=== PATIENT | male | born 1935 | race Caucasian/White ===

== ENCOUNTER → 2016-10-01 | Outpatient (CLI) | payer MEDICARE ==
[~2016-10-01] MED LIST: AMITIZA24 MCG PO; CELEBREX200 MG PO; COZAAR25 MG PO; COZAAR50 MG PO; CYMBALTA60 MG PO; FLOMAX 0.4 MG0.4 MG PO; KLOR-CON M2020 MEQ PO; LASIX40 MG PO; LEVAQUIN500 MG PO; NEURONTIN 300300 MG PO; NEURONTIN 400400 MG PO; OXYBUTYNIN CHLO10 MG PO; OXYCODONE HCL30 MG PO; PILOCARPINE HCL5 MG PO; PROTONIX40 MG PO; SOTALOL80 MG PO; VITAMIN D5000 UNIT PO
== END ==
LOC: HEART 5 11:00
DX: I50.32 Chronic diastolic (congestive) heart failure (principal); R00.1 Bradycardia, unspecified; I47.1 Supraventricular tachycardia; R00.2 Palpitations
CPT/HCPCS: 93306

== ENCOUNTER 2016-10-02 10:11 | Observation (INO) | payer MEDICARE ==
[~2016-10-02] VITALS: Ht 182.9 cm; Wt 110.7 kg
[~2016-10-02 10:11] MED LIST changes: -COZAAR25 MG PO; -LEVAQUIN500 MG PO; -NEURONTIN 400400 MG PO
[2016-10-02 10:43] LABS: HEMOGLOBIN 14.7 gm/dl (14.0-17.5); RED BLOOD COUNT 4.78 M/UL (4.20-5.50); WHITE BLOOD COUNT 5.4 K/UL (4.5-11.0)
[2016-10-02 11:04] LABS: BUN/CREATININE RATIO 17 (0-10)
[2016-10-02] MEDS ORDERED: NEURONTIN 400400 MG PO (19:11)
[2016-10-03] MEDS ORDERED: LEVAQUIN500 MG PO (13:15)
[2016-10-03] MEDS ORDERED: COZAAR25 MG PO (13:18)
== END 2016-10-03 15:00 | disposition home or self-care (01) ==
LOC: ER1 10:11 → ZEROF 17:21 → M/S 17:42
PROVIDERS: Emergency Medicine; ADMIT Internal Medicine Cardiovascular Disease
PROC: 0JH606Z Insertion of Pacemaker, Dual Chamber into Chest Subcutaneous Tissue and Fascia, Open Approach (ICD-10-PCS; principal; 2016-10-02)
PROC: 02H63JZ Insertion of Pacemaker Lead into Right Atrium, Percutaneous Approach (ICD-10-PCS; 2016-10-02)
PROC: 02HK3JZ Insertion of Pacemaker Lead into Right Ventricle, Percutaneous Approach (ICD-10-PCS; 2016-10-02)
DX: I49.5 Sick sinus syndrome (principal); I45.5 Other specified heart block; I11.0 Hypertensive heart disease with heart failure; I50.32 Chronic diastolic (congestive) heart failure; I47.1 Supraventricular tachycardia; E78.5 Hyperlipidemia, unspecified; Z98.890 Other specified postprocedural states; Z79.891 Long term (current) use of opiate analgesic; Z79.899 Other long term (current) drug therapy; Z88.6 Allergy status to analgesic agent; G47.33 Obstructive sleep apnea (adult) (pediatric); Z87.891 Personal history of nicotine dependence; E66.9 Obesity, unspecified; Z68.33 Body mass index [BMI] 33.0-33.9, adult
CPT/HCPCS: 33208; 36415; 71010; 80053; 82550; 82553; 83874; 84443; 84484; 85025; 85610; 93005; 96365; 96366; 96375; 99152; 99153; 99285; C1785; C1898; G0378; J0360; J0690; J1644; J2250; J2270; J3010; J3370; J7030; J7040; J7050; Q9965

== ENCOUNTER 2020-04-09 12:23 | Inpatient (IN) | payer MEDICARE ==
[~2020-04-09] VITALS: Ht 182.9 cm; Wt 97.5 kg
[~2020-04-09 12:23] MED LIST changes: +AMOXICILLIN500 MG PO; +ATIVAN0.5 MG PO; +COZAAR25 MG PO; +DITROPAN XL10 MG PO; +ELIQUIS 5 MG TAB5 MG PO; +KLONOPIN1 MG PO; +LEVAQUIN500 MG PO; +MIRALAX17 GM PO; +NEURONTIN300 MG PO; -PILOCARPINE HCL5 MG PO; +PROVENTIL HFA6.7 GM INH; +RANITIDINE HCL300 M1 PO; +ROPINIROLE HCL0.5 MG PO; +SALAGEN7.5 MG PO; +VITAMIN D32000 UNI1 PO; -VITAMIN D5000 UNIT PO; +XANAX1 MG PO; +ZOFRAN ODT4 MG PO
[2020-04-09] MEDS ORDERED: CARBIDOPA-LEVO1 EAC7 PO (22:38)
[2020-04-09] MEDS ORDERED: CARDIZEM CD240 MG PO (22:39)
[2020-04-09] MEDS ORDERED: TOPROL XL25 MG PO (22:44)
[2020-04-09] MEDS ORDERED: MIRAPEX0.5 MG PO (22:45)
[2020-04-09] MEDS ORDERED: ROXICODONE15 MG PO (22:45)
[2020-04-09] MEDS ORDERED: ROPINIROLE HCL1 MG PO (22:46)
[2020-04-09] MEDS ORDERED: SERTRALINE HCL100 MG PO (22:46)
[2020-04-10 03:33] LABS: HEMOGLOBIN 13.5 gm/dl (14.0-17.5); RED BLOOD COUNT 4.39 M/UL (4.20-5.50); WHITE BLOOD COUNT 14.4 K/UL (4.5-11.0)
[2020-04-10 08:47] LABS: BUN/CREATININE RATIO 38 (0-10)
[2020-04-11 03:33] LABS: HEMOGLOBIN 13.6 gm/dl (14.0-17.5); RED BLOOD COUNT 4.44 M/UL (4.20-5.50); WHITE BLOOD COUNT 16.7 K/UL (4.5-11.0)
[2020-04-11 03:47] LABS: BUN/CREATININE RATIO 30 (0-10)
[2020-04-12 04:49] LABS: HEMOGLOBIN 12.7 gm/dl (14.0-17.5); RED BLOOD COUNT 4.12 M/UL (4.20-5.50); WHITE BLOOD COUNT 18.4 K/UL (4.5-11.0)
[2020-04-12 05:05] LABS: BUN/CREATININE RATIO 24 (0-10)
[2020-04-13 07:02] LABS: HEMOGLOBIN 11.2 gm/dl (14.0-17.5); RED BLOOD COUNT 3.74 M/UL (4.20-5.50); WHITE BLOOD COUNT 17.5 K/UL (4.5-11.0)
[2020-04-13 07:55] LABS: BUN/CREATININE RATIO 17 (0-10)
[2020-04-14 06:02] LABS: HEMOGLOBIN 11.5 gm/dl (14.0-17.5); RED BLOOD COUNT 3.71 M/UL (4.20-5.50); WHITE BLOOD COUNT 14.8 K/UL (4.5-11.0)
[2020-04-15 06:44] LABS: HEMOGLOBIN 11.2 gm/dl (14.0-17.5); RED BLOOD COUNT 3.65 M/UL (4.20-5.50); WHITE BLOOD COUNT 13.2 K/UL (4.5-11.0)
[2020-04-15 07:00] LABS: BUN/CREATININE RATIO 18 (0-10)
--- NOTE | 2020-04-15 18:09 | NUR ---
CALLED LAB SPOKE WITH KANDY REGARDING PTTHP DRAWN AT 1535, KANDY STATED THAT RESULTS ARE STILL PENDING BECAUSE MACHINE MALFUNCTIONED
[2020-04-16 03:44] LABS: HEMOGLOBIN 11.5 gm/dl (14.0-17.5); RED BLOOD COUNT 3.76 M/UL (4.20-5.50); WHITE BLOOD COUNT 12.4 K/UL (4.5-11.0)
[2020-04-16 04:11] LABS: BUN/CREATININE RATIO 20 (0-10)
--- NOTE | 2020-04-18 17:39 | NUR ---
CEE FROM [facility] CALLED ME AND INFORMED ME THAT HH HAD NOT BEEN SET UP FOR PATIENT AND THEY COULD NOT ACCEPT HIM AND DO HIS ANTIBIOTICS. CEE STATED THAT SHE NOTIFIED MIGUE SUGGS AT 1300 AND INFORMED HER THAT THEY DIDNT HAVE THE PAPERWORK THEY NEEDED TO ACCEPT THE PATIENT. PT UNABLE TO GIVE PT ABX. MIDLINE HAS ALREADY BEEN PUT IN. [employer] LIE[employer]NT NOTIFIED ABOUT HOME HEALTH ISSUE. LEROY, CONTACTED MONA PHILIPPE TO TRY AND RESOLVE ISSUE BC PT IS PERISTENT THAT HE LEAVE.
--- NOTE | 2020-04-18 18:11 | NUR ---
SPOKE WITH MIGUE SUGGS VIA TELEPHONE. SHE STATED THAT I NEEDED TO FAX OVER DR TIAN LAST D/C DOCUMENTATION, ALONG WITH SCRIPT AND DC PAPERS. THIS WAS FAXED TO [phone]. THIS NUMBER WAS PROVIDED TO ME BY [facility] DRIER OPERATOR HEAD. AMERIMED NOTIFIED OF PATIENT D/C.
--- NOTE | 2020-04-18 18:31 | NUR ---
DR GOSS NOTIFIED FOR NEED OF PT HOMEBOUND STATUS DOCUMENTATION. DR GOSS SIGNED PAPER AND PAPER WAS FAXED TO [facility]. COMPUTING CONSULTANT COST ESTIMATING CLERK ALREADY GONE. LEFT A MESSAG AND WAITING ON A CALL BACK
[2020-04-19] MEDS ORDERED: UNASYN 3 GM VIAL3 GM IV (11:37)
== END 2020-04-19 14:46 | disposition home health service (06) | DRG 871 ==
LOC: M/S 22:19 → PROG CARE 22:19 → M/S 04-11 16:13
PROVIDERS: Internal Medicine; ADMIT Internal Medicine
DX: A41.9 Sepsis, unspecified organism (principal); J18.9 Pneumonia, unspecified organism; E87.1 Hypo-osmolality and hyponatremia; I48.19 Other persistent atrial fibrillation; I50.32 Chronic diastolic (congestive) heart failure; N39.0 Urinary tract infection, site not specified; I11.0 Hypertensive heart disease with heart failure; B95.61 Methicillin susceptible Staphylococcus aureus infection as the cause of diseases classified elsewhere; I49.5 Sick sinus syndrome; E78.5 Hyperlipidemia, unspecified; Z95.0 Presence of cardiac pacemaker; Z79.899 Other long term (current) drug therapy; Z87.891 Personal history of nicotine dependence; Z96.642 Presence of left artificial hip joint; D72.829 Elevated white blood cell count, unspecified; Z86.711 Personal history of pulmonary embolism; N40.0 Benign prostatic hyperplasia without lower urinary tract symptoms; Z20.822 Contact with and (suspected) exposure to COVID-19
CPT/HCPCS: ECHO; 36415; 71045; 80048; 80053; 83735; 85025; 85027; 85610; 85652; 85730; 86140; 87040; 87086; 87635; 93005; 93306; 97110-GP-CQ; 97116-GP-CQ; 97162; 97166; 97530; 97530-GP-CQ; 97535; C1751; J0295; J0456; J0696; J1644; J2700; J7030

== ENCOUNTER 2021-05-30 14:47 | Emergency (ER) | payer MEDICARE, OTHER ==
[~2021-05-30 14:47] MED LIST changes: +CARBIDOPA-LEVO1 EAC7 PO; +CARDIZEM CD240 MG PO; +MIRAPEX0.5 MG PO; +ROPINIROLE HCL1 MG PO; +ROXICODONE15 MG PO; +SERTRALINE HCL100 MG PO; +TOPROL XL25 MG PO; +UNASYN 3 GM VIAL3 GM IV
== END 2021-05-30 17:27 | disposition home or self-care (01) ==
LOC: ER1 14:47
DX: K94.23 Gastrostomy malfunction (principal); M25.552 Pain in left hip; F17.200 Nicotine dependence, unspecified, uncomplicated; I10 Essential (primary) hypertension; Z86.711 Personal history of pulmonary embolism; K21.9 Gastro-esophageal reflux disease without esophagitis
CPT/HCPCS: 43762; 73502; 74018; 99283; Q9963

== ENCOUNTER 2021-05-31 11:16 | Emergency (ER) | payer MEDICARE, OTHER | END 2021-05-31 18:00 | disposition home or self-care (01) | LOC: ER1 11:16 | DX: Z43.1 Encounter for attention to gastrostomy (principal) | CPT/HCPCS: 74018; 99283; Q9963 ==